=== PATIENT | female | born 1965 | race Caucasian/White ===

== ENCOUNTER 2016-10-04 07:53 | Emergency (ER) | payer OTHER ==
[2016-10-04 08:02] VITALS: BP 157/92
--- NOTE | 2016-10-04 08:38 | RAD ---
HISTORY: Shortness of breath, cough COMPARISONS: October 11, 2005 VIEWS: 2: Frontal dual-energy and lateral views of the chest. FINDINGS: CARDIOMEDIASTINAL SILHOUETTE: The cardiomediastinal silhouette is normal. JUAN: The juan are normal. PLEURA: The costophrenic angles are sharp. No pleural abnormalities are noted. LUNG PARENCHYMA: The lungs are clear. ABDOMEN: The upper abdomen is clear. There is no subphrenic gas. BONES AND SOFT TISSUES: No bone or soft tissue abnormalities are noted. OTHER: None. IMPRESSION: NO ACTIVE CARDIOPULMONARY DISEASE.
--- NOTE | 2016-10-04 08:59 | UC ---
Respiratory Complaint HPI - HPI Summary HPI Summary: COUGH X 4 DAYS + CHEST CONGESTION , WHEEZING , PRODUCTIVE COUGH WITH YELLOW SPUTUM , + SOB, NO CHEST PAIN EDEMA OF BOTH FEET AND HANDS X 1 DAY - History of Current Complaint Chief Complaint: UCRespiratory Stated Complaint: SOB,SWOLLEN HANDS & FEET Time Seen by Provider: 10/04/16 08:07 Hx Obtained From: Patient Hx Last Menstrual Period: 01/26 Onset/Duration: Gradual Onset, Lasting Days - 4, Still Present Timing: Constant Severity Initially: Moderate Severity Currently: Moderate Character: Cough: Productive - YELLOW Aggravating Factors: Exertion, Deep Breaths Alleviating Factors: Upright Position Associated Signs And Symptoms: Positive: Dyspnea, Edema, URI, Nasal Congestion. Negative: Fever, Chills, Pleuritic Chest Pain, Dizziness, Calf Pain, Calf Swelling - Allergies/Home Medications Allergies/Adverse Reactions: Allergies Allergy/AdvReac Type Severity Reaction Status Date / Time Codeine Allergy Severe Vomiting Verified 10/04/16 07:59 Prednisone AdvReac Chest Verified 10/04/16 07:59 Tightness, Palpitations Home Medications: Home Medications Levothyroxine TAB* [Synthroid TAB*] 137 mcg PO EVERY OTHER DAY 10/04/16 [ History Confirmed 10/04/16] PMH/Surg Hx/FS Hx/Imm Hx Endocrine History Of: Reports: Thyroid Disease - Hypothyroidism Cardiovascular History Of: Reports: Cardiac Disorders - SVT with ablation Respiratory History Of: Reports: Asthma - Surgical History Surgical History: Yes Surgery Procedure, Year, and Place: Hysterectomy, 2014; Thyroidectomy, 2011; Cardiac Ablation for SVT, 2009; Craniotomy, 2005 - Family History Known Family History: Positive: Hypertension - Social History Alcohol Use: None Substance Use Type: None Smoking Status (MU): Light Every Day Tobacco Smoker Type: Cigarettes Amount Used/How Often: ~1 pack per week Length of Time of Smoking/Using Tobacco: 24 Years Have You Smoked in the Last Year: Yes - Immunization History Most Recent Influenza Vaccination: Current for Season Review of Systems Constitutional: Negative Skin: Negative Eyes: Negative ENT: Nasal Discharge Respiratory: Shortness Of Breath, Cough Cardiovascular: Negative Gastrointestinal: Negative Genitourinary: Negative All Other Systems Reviewed And Are Negative: Yes Physical Exam Triage Information Reviewed: Yes Appearance: Well-Appearing, No Pain Distress, Well-Nourished Vital Signs: Initial Vital Signs Temp 98.4 F 10/04/16 07:57 Pulse 86 10/04/16 07:57 Resp 20 10/04/16 07:57 BP 157/92 10/04/16 07:57 Pulse Ox 98 10/04/16 07:57 Vital Signs Reviewed: Yes Eye Exam: Normal Eyes: Positive: Conjunctiva Clear ENT: Positive: Normal ENT inspection, Hearing grossly normal, Pharynx normal Neck exam: Normal Neck: Positive: Supple, Nontender, No Lymphadenopathy Respiratory: Positive: Wheezing Cardiovascular: Positive: RRR, No Murmur, Pulses Normal Abdominal Exam: Normal Skin Exam: Normal UC Diagnostic Evaluation - Laboratory O2 Sat by Pulse Oximetry: 98 Respiratory Course/Dx - Course Course Of Treatment: ELEVATED BP: PT. WILL FOLLOW UP WITH HER PCP IN ONE WEEK - Differential Dx/Diagnosis Provider Diagnoses: BRONCHITIS. ELEVATED BP Discharge - Discharge Plan Condition: Stable Disposition: HOME Prescriptions: Albuterol HFA INHALER* [Ventolin HFA Inhaler*] 2 puff INH Q6H PRN #1 mdi PRN Reason: Wheezing Patient Education Materials: Acute Bronchitis (ED), Edema (ED) Forms: *Work Release Referrals: No Primary Care Phys,NOPCP [Primary Care Provider] - Additional Instructions: + EDEMA OF BOTH FEET AND HANDS WILL CHECK CBC, CMP, CALL THE OFFICE IN 2 DAYS FOR THE RESULTS FOLLOW UP WITH YOUR PCP IN 5 DAYS
[2016-10-04 13:52] LABS: Hematocrit 45 % (35-47); Hemoglobin 15.3 g/dl (12.0-16.0); Mean Corpuscular HGB Conc 34 g/dl (31-36); Mean Corpuscular Hemoglobin 31 pg (27-31); Mean Corpuscular Volume 92 fL (80-97); Mean Platelet Volume 9 um3 (7.4-10.4); Red Blood Count 4.94 10^6/ul (4.0-5.4); Red Cell Distribution Width 13 % (10.5-15); White Blood Count 6.8 10^3/ul (3.5-10.8)
[2016-10-04 14:05] LABS: Albumin 4.2 g/dL (3.2-5.2); BUN/Creatinine Ratio 17.2 (8-20); Calcium 9.3 mg/dL (8.6-10.3); EGFR African American 126.8 (>60); EGFR Non-African American 98.6 (>60); Globulin 2.8 g/dL (2-4); Potassium 4.5 mmol/L (3.5-5.0); Total Bilirubin 0.3 mg/dL (0.2-1.0)
== END 2016-10-04 09:16 | disposition home or self-care (01) ==
LOC: UCCORT 07:53
DX: J40 Bronchitis, not specified as acute or chronic (principal); R03.0 Elevated blood-pressure reading, without diagnosis of hypertension; E03.8 Other specified hypothyroidism; Z88.5 Allergy status to narcotic agent; Z88.8 Allergy status to other drugs, medicaments and biological substances; F17.210 Nicotine dependence, cigarettes, uncomplicated
CPT/HCPCS: 36415; 71020; 80053; 85025; 93005; 99212; G0463

== ENCOUNTER 2017-01-26 12:08 | Emergency (ER) | payer OTHER ==
[2017-01-26 12:34] VITALS: BP 132/92
--- NOTE | 2017-01-26 12:38 | UC ---
Abdominal Pain Female HPI - History of Current Complaint Chief Complaint: UCAbdominalPain Stated Complaint: ABD PAIN 3 DAYS Time Seen by Provider: 01/26/17 12:35 Hx Last Menstrual Period: 01/26 Allergies/Adverse Reactions: Allergies Allergy/AdvReac Type Severity Reaction Status Date / Time Codeine Allergy Severe Vomiting Verified 01/26/17 12:34 Prednisone AdvReac Chest Verified 01/26/17 12:34 Tightness, Palpitations PMH/Surg Hx/FS Hx/Imm Hx Previously Healthy: Yes - Surgical History Surgical History: Yes Surgery Procedure, Year, and Place: Hysterectomy, 2014; Thyroidectomy, 2011; Cardiac Ablation for SVT, 2009; Craniotomy, 2005 - Family History Known Family History: Positive: Hypertension - Social History Alcohol Use: None Substance Use Type: None Smoking Status (MU): Heavy Every Day Tobacco Smoker Type: Cigarettes Amount Used/How Often: 1/2 ppd Length of Time of Smoking/Using Tobacco: 24 Years Have You Smoked in the Last Year: Yes - Immunization History Most Recent Influenza Vaccination: Current for Review of Systems Constitutional: Negative Skin: Negative Eyes: Negative ENT: Negative Respiratory: Negative Cardiovascular: Negative Gastrointestinal: Abdominal Pain Genitourinary: Negative Motor: Negative Neurovascular: Negative Musculoskeletal: Negative Neurological: Negative Psychological: Negative All Other Systems Reviewed And Are Negative: Yes Physical Exam Triage Information Reviewed: Yes Vital Signs: Initial Vital Signs Temp 37.1 C 01/26/17 12:29 Pulse 76 01/26/17 12:29 Resp 16 01/26/17 12:29 BP 132/92 01/26/17 12:29 Pulse Ox 96 01/26/17 12:29 Eye Exam: Normal ENT Exam: Normal Dental Exam: Normal Neck exam: Normal Neck: Positive: 1 Respiratory Exam: Normal Cardiovascular Exam: Normal Abdominal Exam: Normal Musculoskeletal Exam: Normal Neurological Exam: Normal Psychological Exam: Normal Skin: Positive: Other - INSECT BITE Abd Pain Female Course/Dx - Differential Dx/Diagnosis Provider Diagnoses: INSECT BITE Discharge - Discharge Plan Condition: Stable Disposition: HOME Discharge Disposition Comment: PLEASE GO TO ER TO RULE OUT ACUTE CHOLECYSTITIS Patient Education Materials: Acute Abdominal Pain (ED) Referrals: No Primary Care Phys,NOPCP [Primary Care Provider] - Additional Instructions: PLEASE GO TO ER TO RULE OUT ACUTE CHOLEYCYSTITIS
== END 2017-01-26 12:51 | disposition home or self-care (01) ==
LOC: UCCORT 12:08
DX: R10.11 Right upper quadrant pain (principal); Z90.710 Acquired absence of both cervix and uterus; Z88.5 Allergy status to narcotic agent; F17.210 Nicotine dependence, cigarettes, uncomplicated
CPT/HCPCS: 99211; G0463

== ENCOUNTER 2017-10-16 17:02 | Emergency (ER) | payer OTHER ==
[2017-10-16 17:48] VITALS: BP 134/90
--- NOTE | 2017-10-16 17:50 | UC ---
UC General HPI - HPI Summary HPI Summary: pt states she was running yesterday and felt a sudden pain deep in the bone of her R lower leg. statse had the same last year but it was lower and was dx with a stress fx - History of Current Complaint Stated Complaint: (R) LEG COMPLAINT Time Seen by Provider: 10/16/17 17:43 Hx Obtained From: Patient Hx Last Menstrual Period: 01/26 Onset/Duration: Sudden Onset Timing: Constant Aggravating: weight on the leg Alleviating: improves with non weight to the leg Associated Signs & Symptoms: Positive: Edema - over site of pain. Negative: Fever - Allergy/Home Medications Allergies/Adverse Reactions: Allergies Allergy/AdvReac Type Severity Reaction Status Date / Time prednisone Allergy Severe chest Verified 10/16/17 17:51 tightness/palpitations codeine Allergy Intermediate Vomiting Verified 10/16/17 17:51 PMH/Surg Hx/FS Hx/Imm Hx - Additional Past Medical History Additional PMH: stress fx rle Endocrine History: Thyroid Disease - Surgical History Surgical History: Yes Surgery Procedure, Year, and Place: Hysterectomy, 2014; Thyroidectomy, 2011; Cardiac Ablation for SVT, 2009; Craniotomy, 2005 - Family History Known Family History: Positive: Hypertension - Social History Occupation: Employed Full-time Alcohol Use: None Substance Use Type: None Smoking Status (MU): Heavy Every Day Tobacco Smoker Type: Cigarettes Amount Used/How Often: 1/2 ppd Length of Time of Smoking/Using Tobacco: 24 Years Have You Smoked in the Last Year: Yes - Immunization History Most Recent Influenza Vaccination: Current for 2015/2016 Season Vaccination Up to Date: Yes Review of Systems Constitutional: Negative Skin: Negative Eyes: Negative ENT: Negative Respiratory: Negative Cardiovascular: Negative Gastrointestinal: Negative Genitourinary: Negative Motor: Negative Neurovascular: Negative Musculoskeletal: Other: - pain r tibia Neurological: Negative Psychological: Negative Is Patient Immunocompromised?: No All Other Systems Reviewed And Are Negative: Yes Physical Exam Triage Information Reviewed: Yes Appearance: Well-Appearing Eyes: Positive: Conjunctiva Clear ENT: Positive: Normal ENT inspection Neck: Positive: Supple, Nontender, No Lymphadenopathy Respiratory: Positive: Lungs clear, Normal breath sounds Cardiovascular: Positive: RRR, No Murmur Abdomen Description: Positive: Nontender, No Organomegaly, Soft Bowel Sounds: Positive: Present Musculoskeletal: Positive: Other: - RLE: hip, knee, ankle and foot are atraumatic. slight swelling and tender over medial-upper half of tibia. leg has full s/v/m function. No laxity to knee. Neurological: Positive: Alert Psychological: Positive: Age Appropriate Behavior Skin Exam: Normal Diagnostics - Radiology No standard instances Xray Interpretation: No Acute Changes Radiology Interpretation Completed By: Radiologist Course/Dx - Course Course Of Treatment: no concern for infection or dvt. no fx on xray but stress fx still possible. will crutch and refer to her ortho([facility]). no htn, i think BP is injury related. - Differential Dx - Multi-Symptom Provider Diagnoses: Acute pain R proximal tibia. Possible stress fracture Discharge - Sign-Out/Discharge Documenting (check all that apply): Discharge/Admit/Transfer - Discharge Plan Condition: Stable Disposition: HOME Patient Education Materials: Joseph Splints (ED) Forms: *Work Release Referrals: Raquel Hammond MD [Primary Care Provider] - If Needed Additional Instructions: call and follow up with your orthopedist at [facility] in [place] tomorrow. use crutches and NO Weight on leg until cleared by orthopedics - Billing Disposition and Condition Condition: STABLE Disposition: HOME
--- NOTE | 2017-10-16 18:18 | RAD ---
Indication: Right-sided leg pain. 2 views of the right lower leg demonstrates no fracture. No other bone or joint abnormality is noted. IMPRESSION: No fracture of the right lower leg is noted.
== END 2017-10-16 18:47 | disposition home or self-care (01) ==
LOC: UCCORT 17:02
DX: M79.661 Pain in right lower leg (principal); F17.210 Nicotine dependence, cigarettes, uncomplicated; Z88.8 Allergy status to other drugs, medicaments and biological substances; Z88.5 Allergy status to narcotic agent
CPT/HCPCS: 99211; G0463

== ENCOUNTER 2018-01-04 14:41 | Emergency (ER) | payer OTHER ==
[2018-01-04 15:33] VITALS: BP 126/101
--- NOTE | 2018-01-04 16:24 | RAD ---
Indication: RIGHT wrist and distal forearm pain post fall. Comparison: November 13, 2010 RIGHT wrist radiographs. Technique: AP, lateral, and oblique views RIGHT wrist. AP and lateral views RIGHT forearm. Report: Dorsal and ulnar soft tissue swelling at the mid to distal forearm. Negative for subcutaneous emphysema. Negative for forearm or wrist fracture or articular malalignment. 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 IMPRESSION: #. Dorsal and ulnar soft tissue swelling at the mid to distal forearm. #. Negative for fracture or articular malalignment at the forearm or wrist.
--- NOTE | 2018-01-04 16:34 | UC ---
Hand/Wrist HPI - History Of Current Complaint Chief Complaint: UCTrauma Stated Complaint: RIGHT ARM INJURY - WC Time Seen by Provider: 01/04/18 15:29 Hx Last Menstrual Period: 01/26 ?: No Onset/Duration: Sudden Onset Severity Initially: Moderate Severity Currently: Moderate Pain Intensity: 6 Character Of Pain: Sharp, Aching Aggravating Factor(s): Movement Alleviating Factor(s): Rest Associated Signs And Symptoms: Positive: Negative - Allergies/Home Medications Allergies/Adverse Reactions: Allergies Allergy/AdvReac Type Severity Reaction Status Date / Time prednisone Allergy Severe chest Verified 01/04/18 15:28 tightness/palpitations codeine Allergy Intermediate Vomiting Verified 01/04/18 15:28 PMH/Surg Hx/FS Hx/Imm Hx Previously Healthy: Yes - Surgical History Surgical History: Yes Surgery Procedure, Year, and Place: Hysterectomy, 2014; Thyroidectomy, 2011; Cardiac Ablation for SVT, 2009; Craniotomy, 2005 - Family History Known Family History: Positive: Hypertension - Social History Alcohol Use: None Substance Use Type: None Smoking Status (MU): Heavy Every Day Tobacco Smoker Type: Cigarettes Amount Used/How Often: 1/2 ppd Length of Time of Smoking/Using Tobacco: 24 Years Have You Smoked in the Last Year: Yes - Immunization History Most Recent Influenza Vaccination: Current for Season Vaccination Up to Date: Yes Review of Systems Constitutional: Negative Skin: Negative Eyes: Negative ENT: Negative Respiratory: Negative Cardiovascular: Negative Gastrointestinal: Negative Genitourinary: Negative Motor: Negative Neurovascular: Negative Musculoskeletal: Negative Neurological: Negative Psychological: Negative Is Patient Immunocompromised?: No All Other Systems Reviewed And Are Negative: Yes Physical Exam Triage Information Reviewed: Yes Appearance: Well-Appearing Vital Signs: Initial Vital Signs Temp 36.5 C 01/04/18 15:23 Pulse 82 01/04/18 15:23 Resp 16 01/04/18 15:23 BP 126/101 01/04/18 15:23 Pulse Ox 98 01/04/18 15:23 Vital Signs Reviewed: Yes Eye Exam: Normal ENT Exam: Normal Dental Exam: Normal Neck exam: Normal Respiratory Exam: Normal Musculoskeletal Exam: Other - swelling over the ulnar side of the forearm on the right, full rom of the wrist, some pain with ulnar deviation Neurological Exam: Normal Hand/Wrist Course/Dx - Differential Dx/Diagnosis Provider Diagnoses: bruise of the forearm , right Discharge - Sign-Out/Discharge Documenting (check all that apply): Patient Departure - Discharge Plan Condition: Good Disposition: HOME Referrals: Raquel Hammond MD [Primary Care Provider] - - Billing Disposition and Condition Condition: GOOD Disposition: Home
== END 2018-01-04 16:43 | disposition home or self-care (01) ==
LOC: UCCORT 14:41
DX: S50.11XA Contusion of right forearm, initial encounter (principal); X58.XXXA Exposure to other specified factors, initial encounter; Y93.9 Activity, unspecified; Y92.9 Unspecified place or not applicable; Z88.5 Allergy status to narcotic agent; Z88.8 Allergy status to other drugs, medicaments and biological substances; F17.210 Nicotine dependence, cigarettes, uncomplicated
CPT/HCPCS: 99211; G0463

== ENCOUNTER 2018-10-08 08:15 | Emergency (ER) | payer BC ==
--- NOTE | 2018-10-08 08:37 | UC ---
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 3 weeks ago, she developed pain to the back of her R arm, "a circular spot" in her R anterior chest, in the center of her low back and in her L "iliac crest". she denies any hx of injury or overuse. no fever. no new rashes just the pals and soles of her feet. the pain in her chest is very localized and not exertional plus no sob or diaphoresis. she admits that the pustular psoriasis was preceded by a viral illness. - History of Current Complaint Stated Complaint: BACK,LT HIP,RT ARM PAIN Time Seen by Provider: 10/08/18 08:28 Hx Obtained From: Patient Hx Last Menstrual Period: 01/26 Timing: Constant Aggravating: movement Associated Signs & Symptoms: Negative: Abdominal Pain, Cough, Fever, SOB - Allergy/Home Medications Allergies/Adverse Reactions: Allergies Allergy/AdvReac Type Severity Reaction Status Date / Time prednisone Allergy Severe chest Verified 10/08/18 08:30 tightness/palpitations codeine Allergy Intermediate Vomiting Verified 10/08/18 08:30 PMH/Surg Hx/FS Hx/Imm Hx - Additional Past Medical History Additional PMH: Vonwillebrands, Hodgkins disease, Pustular psoriasis. Endocrine History: Thyroid Disease - nodules thus removed Cardiovascular History: Hypertension - not txing yet GI/ History: Gastroesophageal Reflux - Surgical History Surgical History: Yes Surgery Procedure, Year, and Place: Hysterectomy, 2014; Thyroidectomy, 2011; Cardiac Ablation for SVT, 2009; Craniotomy, 2005 - Family History Known Family History: Positive: Hypertension - Social History Occupation: Employed Full-time Alcohol Use: None Substance Use Type: None Smoking Status (MU): Heavy Every Day Tobacco Smoker Type: Cigarettes Amount Used/How Often: 1/2 ppd Length of Time of Smoking/Using Tobacco: 24 Years Have You Smoked in the Last Year: Yes - Immunization History Most Recent Influenza Vaccination: Current for 2015/2016 Season Vaccination Up to Date: Yes Review of Systems All Other Systems Reviewed And Are Negative: Yes Constitutional: Negative: Fever, Fatigue Skin: Positive: Rash - pustular psoriasis Respiratory: Negative: Shortness Of Breath, Cough Cardiovascular: Negative: Palpitations, Chest Pain Gastrointestinal: Negative: Abdominal Pain Genitourinary: Negative: Dysuria Musculoskeletal: Negative: Calf Tenderness, Edema Physical Exam Triage Information Reviewed: Yes Appearance: Well-Appearing Vital Signs Reviewed: Yes Eyes: Positive: Conjunctiva Clear ENT: Positive: Normal ENT inspection Neck: Positive: Supple, Nontender, No Lymphadenopathy Respiratory: Positive: Lungs clear, Normal breath sounds, No respiratory distress, Other: - R anterior chest tenderness Cardiovascular: Positive: RRR, No Murmur Abdomen Description: Positive: Nontender, No Organomegaly, Soft Bowel Sounds: Positive: Present Musculoskeletal: Positive: Other: - Generalized joint exam: no redness or swelling. RUE has no deformity or tenderness and full s/v/m is intact. Forced extension reproduces the pain in the triceps mm. when pt stands or moves forward , I note she uses the arm to push off as a result of the back and hip pain. Spine: no gross deformity, swelling or rash. Tender over lower lumbar spine and rom is limited by pain. Pelvis: no deformity or rash but tender over the L iliac crest area. Gross s/v/m is intact x4. Gait is slow but steady. Neurological: Positive: Alert Psychological: Positive: Age Appropriate Behavior Skin Exam: Normal Skin: Positive: Rashes - tiny pustular areas on dry scaley base to palms and arches of feet. Diagnostics - Radiology No standard instances Radiology Interpretation Completed By: Radiologist - cxr, lumar and pelvis xrays =nad - EKG Cardiac Rate: NL Cardiac Rhythm: Sinus: Normal Ectopy: None ST Segment: Non-Specific - slight depression III, similar to a prior ekg Course/Dx - Differential Dx - Multi-Symptom Differential Diagnoses: Other - RUE pain isolates to the tricep mm and may be from over use. ekg is unremarkable. no concern for PE or cardiac ischemia. CXR= NAD. LUMBAR SPINE=NAD. PELVIS=NAD. HX, PX and recent dx of pustular psoriasis raises conern for an autoimmune disorder causes her muskuloskeletal pains. will refer to her pcp abelardo. pt declined narcotic pain medication. - Diagnoses Provider Diagnosis: Myalgia, Arthralgia Discharge - Sign-Out/Discharge Documenting (check all that apply): Patient Departure All imaging exams completed and their final reports reviewed: Yes - Discharge Plan Condition: Stable Disposition: HOME Patient Education Materials: Arthralgia (ED) Referrals: Raquel Hammond MD [Primary Care Provider] - As Soon As Possible - Billing Disposition and Condition Condition: STABLE Disposition: Home
[2018-10-08 08:40] VITALS: BP 154/94
== END 2018-10-08 10:14 | disposition home or self-care (01) ==
LOC: UCCORT 08:15
DX: M79.10 Myalgia, unspecified site (principal); M25.50 Pain in unspecified joint; E07.9 Disorder of thyroid, unspecified; I10 Essential (primary) hypertension; K21.9 Gastro-esophageal reflux disease without esophagitis; F17.210 Nicotine dependence, cigarettes, uncomplicated; D68.0 Von Willebrand disease; I71.2 Thoracic aortic aneurysm, without rupture; Z88.5 Allergy status to narcotic agent
CPT/HCPCS: 71046; 72110; 72170; 93005; 99211; G0463

== ENCOUNTER 2019-08-27 09:27 | Emergency (ER) | payer BC, OTHER ==
--- OUTSIDE RECORDS SUMMARY | 2019-08-27 09:48 | XMS REPORT | Continuity of Care Document ---
:1965 External Reference #:[id number] Author Name Gino Nuñez MD Address [address] [place] [address] Care Team Providers Name Role Phone Felicity Gabriel PA - Medical Care Team Information Latex Thread Machine Operator [phone] Manuel Hernandez MD - Rheumatology Care Team Information Latex Thread Machine Operator Gino Nuñez MD - Family Medicine Care Team Information Latex Thread Machine Operator [phone] Lukas Soliman MD [facility] - Care Team Information Latex Thread Machine Operator [phone] Cardiovascular Disease Problems Active Problems Provider Date Right upper quadrant pain Mandeep Vera MD Onset: 02/03/2017 Heartburn Mandeep Vera MD Onset: 02/03/2017 History of polyp of colon Mandeep Vera MD Onset: 02/03/2017 Abnormal findings diagnostic imaging of Mandeep Vera MD Onset: 02/03/2017 liver+biliary tract Digestive symptom Mandeep Vera MD Onset: 02/03/2017 Flatulence, eructation and gas pain Mandeep Vera MD Onset: 02/03/2017 Headache Raquel Hammond MD Onset: 08/30/2017 Malaise and fatigue Raquel Hammond MD Onset: 08/30/2017 Tobacco user Raquel Hammond MD Onset: 08/30/2017 Knee pain Howie Casillas M.D. Onset: 10/19/2017 Bursitis Howie Casillas M.D. Onset: 10/26/2017 Social History Type Date Description Comments Sex Unknown Tobacco Use Reviewed: 06/28/19 Current Cigarette Smoker Cigarettes Daily 10 Smoking Status Reviewed: 08/06/19 Current Cigarette Smoker Cigarettes Daily 10 Smokeless Tobacco Never Used Smokeless Tobacco ETOH Use Rarely consumes alcohol Recreational Drug Use Denies Drug Use Tobacco Use Start: Unknown Patient is a current smoker, smokes 1/2 ppd every day Allergies, Adverse Reactions, Alerts Active Allergies Reaction Severity Comments Date Codeine nausea, diaphoresis 12/04/2015 Prednisone Chest Pain 10/18/2017 Imitrex Allergic asthma, Anaphylaxis Severe 08/30/2017 Medications Active Medications SIG Qnty Indications Ordering Date Provider Prazosin HCL Take 1 Capsule 90caps F41.9 Gino Nuñez, 08/06/2019 1mg Capsules By Mouth AT MD Bedtime Escitalopram Oxalate 1 tab by mouth 30tabs F41.9 Gino Nuñez, 2019 10mg every day MD Tablets Lisinopril Take 2 Tablets 180tabs I10 Gino Nuñez, 05/14/2019 10mg Tablets By Mouth Every MD Day Levothyroxine Sodium take 1 tablet by 90tabs Gino Nuñez, mouth daily MD 150mcg Tablets Tylenol PM Extra 1 tab by mouth Unknown Strength every night as 500-25mg Tablets needed Ventolin HFA Take 2 puffs by 8gm Raquel Hammond, 108(90Base) mouth every 4 MD mcg/Act Aerosol hours as needed for SOB/ cough History Medications Bupropion Take 1 tab 60tabs F17.210 Gino Nuñez, 05/14/2019 - Hydrochloride ER (SR) daily for 3 MD 06/28/2019 days and then 150mg Tablets ER 12HR take one tab twice a day. Immunizations CPT Code Status Date Vaccine Lot # [id number] Given 02/27/2018 Influenza Virus Vaccine, Quadrivalent, 36 Mos+, [id number] Given 02/15/2017 Tdap injection [id number] Vital Signs Date Vital Result Comment 08/12/2019 10:54am BP Systolic Sitting Left Arm 124 mmHg BP Diastolic Sitting Left Arm 88 mmHg Body Temperature 97.9 F Heart Rate 86 /min Respiratory Rate 18 /min Height 63 inches 5'3" [place] body weight in kilograms 52 kg O2 % BldC Oximetry 97 % Ra 08/06/2019 8:55am BP Systolic Sitting Left Arm 118 mmHg BP Diastolic Sitting Left Arm 84 mmHg Body Temperature 97.7 F Heart Rate 88 /min Respiratory Rate 18 /min Height 63 inches 5'3" Weight 179.00 lb BMI (Body Mass Index) 31.7 kg/m2 BSA (Body Surface Area) 1.84 m2 [place] body weight in kilograms 52 kg O2 % BldC Oximetry 97 % Ra Results Test Acquired Date Facility Test Result H/L Range Note Basic Metabolic 06/22/2019 [facility] Glucose 97 mg/dL Normal 74-106 [address] [place] [address] [phone] BUN 12 mg/dL Normal 7-18 Creatinine 0.8 mg/dL Normal 0.6-1.3 Glom Filtration Rate, Estimate >60 mL/min >60 If >60 mL/min >60 2 BUN/Creat 15.0 ratio Sodium 137 mmol/L Normal 136-145 Potassium 3.9 mmol/L Normal 3.5-5.1 Chloride 107 mmol/L Normal 98-107 Carbon Dioxide 25 mmol/L Normal 21-32 Anion Gap 5 mEq/L Low 8-16 Calcium 8.8 mg/dL Normal 8.5-10.1 CBC W/Automated 06/22/2019 [facility] White Blood 6.5 K/uL Normal 3.1-10.[address] [place] [address] [phone] Red Blood Count 5.03 M/uL Normal 3.90-5.40 Hemoglobin 15.6 gm/dL Normal 11.6-15.8 Hematocrit 45.5 % Normal 36.0-46.1 Mean Cell Volume 90.5 fl Normal 80.9-99.0 Mean Corpuscular HGB 31.0 pg Normal 25.9-32.7 Mean Corpuscular HGB Conc 34.3 g/dL Normal 30.8-34.3 Platelet Count 391 K/uL High 155-360 Red Cell Distri Width SD 42.4 fl Normal 36-47 Red Cell Distri Width %CV 12.8 % Normal 11.7-14.4 Mean Platelet Volume 10.5 fl Normal 8.9-12.4 Neut% 48.6 % Normal 40.4-72.8 Lymph % 41.6 % Normal 20.0-42.0 [place]ane % 6.2 % Normal 4.3-13.2 Eo% 2.5 % Normal 0.0-6.6 Bas% 0.8 % Normal 0.0-1.1 Immature Grans 0.3 % Normal 0.0-5.0 NRBC % 0.0 /100WBC < 10/ 100 WBC Neut# 3.16 K/uL Normal 1.8-7.0 Lymph # 2.70 K/uL Normal 1.0-4.0 [place] # 0.40 K/uL Normal 0.3-0.9 Eos # 0.16 K/uL Normal 0.0-0.5 Baso # 0.05 K/uL Normal 0.0-0.1 Immature Grans Absolute 0.02 K/uL NRBC # 0.00 K/uL Laboratory test 06/22/2019 [facility] Thyroid 1.56 Normal 0.30-4.[address] Stim uIU/[place] [address] Hormone [phone] 1 I10 E03.9 2 Note: Persistent reduction for 3 months or more in an eGFR <60 mL/min/1.73 m2 defines CKD. Patients with eGFR values >/=60 mL/min/1.73 m2 may also have CKD if evidence of persistent proteinuria is present. The original MDRD equation for estimated GFR is not valid for patients less than 18 years of age. Additional information may be found at [email or web address].org. Procedures Date Code Description Status 05/14/2019 81054 EKG-Tracing And Report Completed 07/27/2017 [id number] Mammogram Completed 08/10/2015 [id number] Mammogram Completed 03/26/2015 [id number] Colonoscopy Completed Medical Devices Description No Information Available Encounters Type Date Location Provider Dx Diagnosis Office Visit 08/12/2019 [facility] Nuñez, L72.0 Epidermal cyst 10:40a Office MD Office Visit 08/06/2019 [facility] Gino Nuñez, I10 Essential ( primary) 9:00a Office hypertension F41.9 Anxiety disorder, unspecified F17.210 Nicotine dependence, cigarettes, uncomplicated J20.9 Acute bronchitis, unspecified Office Visit 06/28/2019 8:40a [facility]ino Nuñez, I10 Essential (primary) Office hypertension F41.9 Anxiety disorder, unspecified F17.210 Nicotine dependence, cigarettes, uncomplicated Z71.6 Tobacco abuse counseling E66.9 Obesity, unspecified Z12.31 Encntr screen mammogram for malignant neoplasm of breast Office Visit 05/14/2019 2:10p [facility] Gino Nuñez, I10 Essential (primary) Office hypertension R07.9 Chest pain, unspecified R00.2 Palpitations E03.9 Hypothyroidism, unspecified E78.5 Hyperlipidemia, unspecified F17.210 Nicotine dependence, cigarettes, uncomplicated F41.9 Anxiety disorder, unspecified Z23 Encounter for immunization Assessments Date Code Description Provider 08/12/2019 L72.0 Epidermal cyst Gino Nuñez MD 08/06/2019 I10 Essential (primary) hypertension Gino Nuñez MD 08/06/2019 F41.9 Anxiety disorder, unspecified Gino Nuñez MD 08/06/2019 F17.210 Nicotine dependence, cigarettes, uncomplicated Gino Nuñez MD 08/06/2019 J20.9 Acute bronchitis Gino Nuñez MD 06/28/2019 I10 Essential (primary) hypertension Gino Nuñez MD 06/28/2019 F41.9 Anxiety disorder, unspecified Gino Nuñez MD 06/28/2019 F17.210 Nicotine dependence, cigarettes, uncomplicated Gino Nuñez MD 06/28/2019 Z71.6 Tobacco abuse counseling Gino Nuñez MD 06/28/2019 E66.9 Obesity, unspecified Gino Nuñez MD 06/28/2019 Z12.31 Encounter for screening mammogram for malignant Gino Nuñez MD neoplasm of breast 05/14/2019 I10 Essential (primary) hypertension Gino Nuñez MD 05/14/2019 R07.9 Chest pain, unspecified Gino Nuñez MD 05/14/2019 R00.2 Palpitations Gino Nuñez MD 05/14/2019 E03.9 Hypothyroidism, unspecified Gino Nuñez MD 05/14/2019 E78.5 Hyperlipidemia, unspecified Gino uNñez MD 05/14/2019 F17.210 Nicotine dependence, cigarettes, uncomplicated Gino Nuñez MD 05/14/2019 F41.9 Anxiety disorder, unspecified Gino Nuñez MD 05/14/2019 Z23 Encounter for immunization Gino Nuñez MD Plan of Treatment Future Appointment(s):11/04/2019 3:30 pm - Gino Nuñez MD at [facility] Imokyz1608/12/2019 - Gino Nuñez MDL72.0 Epidermal cystComments:Patient has an appointment coming up with plastic surgery. Discussed with her that this appointmentthey will likely be able to remove the cyst.Recommended patient keep area clean. She can shower andthe left running water over this area. She can apply soap. She keep area lightly covered. No evidence of infection. Reassurance provided Functional Status Description No Information Available Mental Status Description No Information Available Referrals Refer to Reason for Referral Status Appt Date Lukas Soliman MD [facility] Closed 07/25/[address] [place] [address] [phone]
--- OUTSIDE RECORDS SUMMARY | 2019-08-27 09:48 | XMS REPORT | Continuity of Care Document ---
:1965 External Reference #:[id number] Author Name Gino Nuñez MD Address [address] [place] [address] Care Team Providers Name Role Phone Felicity Gabriel PA - Medical Care Team Information Pile Driving Nozzleman Manuel Hernandez MD - Rheumatology Care Team Information Pile Driving Nozzleman Gino Nuñez MD - Family Medicine Care Team Information Pile Driving Nozzleman Lukas Soliman MD [facility] - Care Team Information Pile Driving Nozzleman [phone] Cardiovascular Disease Problems Active Problems Provider Date [...] Qnty Indications Ordering Date Provider Prazosin HCL 1 tab by mouth 60caps F41.9 Gino Nuñez, 08/06/2019 1mg Capsules at bedtime Escitalopram Oxalate 1 tab by mouth 30tabs [...] CPT Code Status Date Vaccine Lot # [id number] Given 02/27/2018 Influenza Virus Vaccine, Quadrivalent, 36 Mos+, [id number] .[id number] Given 02/15/2017 Tdap injection [id number] Vital Signs Date Vital Result Comment 08/06/2019 8:55am BP Systolic Sitting Left Arm 118 mmHg BP Diastolic Sitting Left Arm 84 mmHg Body Temperature 97.7 F Heart Rate 88 /min Respiratory Rate 18 /min Height 63 inches 5'3" Weight 179.00 lb BMI (Body Mass Index) 31.7 kg/m2 BSA (Body Surface Area) 1.84 m2 [place] body weight in kilograms 52 kg O2 % BldC Oximetry 97 % Ra 06/28/2019 8:30am BP Systolic Sitting Left Arm 132 mmHg BP Diastolic Sitting Left Arm 86 mmHg Body Temperature 97.5 F Heart Rate 84 /min Respiratory Rate 18 /min Height 63 inches 5'3" Weight 178.00 lb BMI (Body Mass Index) 31.5 kg/m2 BSA (Body Surface Area) 1.84 m2 O2 % BldC Oximetry 97 % ra Results Test Acquired Date Facility Test Result H/L Range Note Basic Metabolic 06/22/2019 [facility] Glucose 97 mg/dL Normal 74-106 1 Panel [address] [place] [address] [phone] BUN 12 mg/dL Normal 7-18 Creatinine 0.8 mg/dL Normal 0.6-1.3 Glom Filtration Rate, Estimate >60 mL/min >60 If >60 mL/min >60 2 BUN/Creat 15.0 ratio Sodium 137 mmol/L Normal 136-145 Potassium 3.9 mmol/L Normal 3.5-5.1 Chloride 107 mmol/L Normal 98-107 Carbon Dioxide 25 mmol/L Normal 21-32 Anion Gap 5 mEq/L Low 8-16 Calcium 8.8 mg/dL Normal 8.5-10.1 CBC W/Automated 06/22/2019 [facility] White Blood 6.5 K/uL Normal 3.1-10.[address] [place] [address] [phone] Red Blood Count 5.03 M/uL Normal 3.90-5.40 [...] 40.4-72.8 Lymph % 41.6 % Normal 20.0-42.0 [place] % 6.2 % Normal 4.3-13.2 Eo% 2.5 % Normal 0.0-6.6 Bas% 0.8 % Normal 0.0-1.1 Immature Grans 0.3 % Normal 0.0-5.0 NRBC % 0.0 /100WBC < 10/ 100 WBC Neut# 3.16 K/uL Normal 1.8-7.0 Lymph # 2.70 K/uL Normal 1.0-4.0 [place] # 0.40 K/uL Normal 0.3-0.9 Eos # 0.16 K/uL Normal 0.0-0.5 Baso # 0.05 K/uL Normal 0.0-0.1 Immature Grans Absolute 0.02 K/uL NRBC # 0.00 K/uL Laboratory test 06/22/2019 [facility] Thyroid 1.56 Normal 0.30-4.[address] Stim uIU/[place] [address] Hormone [phone] 1 I10 E03.9 2 Note: Persistent reduction [...] [email or web address]. Procedures Date Code Description Status 05/14/2019 42879 EKG-Tracing And Report Completed 07/27/2017 [id number] Mammogram Completed 08/10/2015 [id number] Mammogram Completed 03/26/2015 [id number] Colonoscopy Completed Medical Devices Description No Information Available Encounters Type Date Location Provider Dx Diagnosis Office Visit 08/06/2019 [facility] Nuñez, [...] for immunization Assessments Date Code Description Provider 08/06/2019 I10 Essential (primary) hypertension Gino Nuñez [...] unspecified Gino Nuñez MD 05/14/2019 E78.5 Hyperlipidemia, gokulified Gino Nuñez MD 05/14/2019 F17.210 Nicotine dependence, cigarettes, uncomplicated Gino Nuñez MD 05/14/2019 F41.9 Anxiety disorder, unspecified Gino Nuñez MD 05/14/2019 Z23 Encounter for immunization Gino Nuñez MD Plan of Treatment Future Appointment(s):11/04/2019 3:30 pm - Gino Nuñez MD at [facility] Ajjaal1708/06/2019 - Gino Nuñez MDI10 Essential (primary) hypertensionComments:Blood pressure is well controlled. She checks her blood pressure occasionally at work as well and that's been well- controlled.Asymptomatic.Continue current regimen.F41.9 Anxiety disorder, unspecifiedNew Medication:Prazosin HCL 1 mg - 1 tab by mouth at bedtimeComments: Symptoms of anxiety have improved. She does describe some PTSD-like symptoms. I encouraged her to continue seeing psychology for counseling which is provided by her work.She does feel safe.In regards to the lack of emotions, patient does wish to maybe try stopping the Lexapro for a couple of weeks tosee if this changes anything and I am agreeable to this. She will start the Lexapro again if she feels it doesn't make a difference to her emotions.I will start prazosin 1 mg at night for her sleep disturbances. Educated patient on tapering dose by 1 mg every 3-4 days, depending on her symptoms, upto a maximum of 3 mg at night.F17.210 Nicotine dependence, cigarettes, uncomplicatedComments:Patient continues to smoke.J20.9 Acute bronchitisComments:Discussed with patient that her cough is likely secondary to bronchitis. Viral trigger.Symptomatic management. Yuta-wdt-pedrsib medications for this her cough if needed.Zyrtec at night for postnasal drip.Albuterol inhaler at least twice a day for her wheezing.She'll contact me if she develops any worsening symptoms or fevers.AllFollow up:3 months Functional Status Description No Information Available Mental Status Description No Information Available Referrals Refer to Dr Reason for Referral Status Appt Date Lukas Soliman MD [facility] Closed 07/25/[address] [place] [address] [phone]
--- OUTSIDE RECORDS SUMMARY | 2019-08-27 09:49 | XMS REPORT | Continuity of Care Document ---
:1965 External Reference #:[id number] Author Name Gino Nuñez MD Address [address] [place] [address] Care Team Providers Name Role Phone Felicity Gabriel PA - Medical Care Team Information Blueprint Maker [phone] Manuel Hernandez MD - Rheumatology Care Team Information Blueprint Maker [phone] Gino Nuñez MD - Family Medicine Care Team Information Blueprint Maker Lukas Soliman MD [facility] - Care Team Information Blueprint Maker [phone] Cardiovascular Disease Problems Active Problems Provider Date [...] Smoker Cigarettes Daily 10 Smoking Status Reviewed: 06/28/19 Current Cigarette Smoker Cigarettes Daily 10 Smokeless [...] Medications SIG Qnty Indications Ordering Date Provider Escitalopram Oxalate 1 tab by mouth 30tabs [...] CPT Code Status Date Vaccine Lot # [id number] Given 02/27/2018 Influenza Virus Vaccine, Quadrivalent, 36 Mos+, [id number] .[id number] [id number] Given 02/15/2017 Tdap injection [id number] Vital Signs Date Vital Result Comment 06/28/2019 8:30am BP Systolic Sitting Left Arm 132 mmHg BP Diastolic Sitting Left Arm 86 mmHg Body Temperature 97.5 F Heart Rate 84 /min Respiratory Rate 18 /min Height 63 inches 5'3" Weight 178.00 lb BMI (Body Mass Index) 31.5 kg/m2 BSA (Body Surface Area) 1.84 m2 O2 % BldC Oximetry 97 % ra 05/14/2019 1:57pm BP Systolic Sitting Right Arm 156 mmHg elect. BP Diastolic Sitting Right Arm 111 mmHg elect. BP Systolic Sitting Left Arm 160 mmHg manual BP Diastolic Sitting Left Arm 100 mmHg manual Body Temperature 98.6 F Heart Rate 93 /min Respiratory Rate 18 /min Height 63 inches 5'3" Weight 179.00 lb BMI (Body Mass Index) 31.7 kg/m2 BSA (Body Surface Area) 1.84 m2 [place] body weight in kilograms 52 kg O2 % dC Oximetry 98 % Results Test Acquired Date Facility Test Result H/L Range Note Basic Metabolic 06/22/2019 [facility] Glucose 97 mg/dL Normal 74-106 [address] [place] [address] [phone] BUN 12 mg/dL Normal 7-18 Creatinine 0.8 mg/dL Normal 0.6-1.3 Glom Filtration Rate, Estimate >60 mL/min >60 If >60 mL/min >60 2 BUN/Creat 15.0 ratio Sodium 137 mmol/L Normal 136-145 Potassium 3.9 mmol/L Normal 3.5-5.1 Chloride 107 mmol/L Normal 98-107 Carbon Dioxide 25 mmol/L Normal 21-32 Anion Gap 5 mEq/L Low 8-16 Calcium 8.8 mg/dL Normal 8.5-10.1 CBC W/Automated 06/22/2019 [facility] White Blood 6.5 K/uL Normal 3.1-10.[address] [place] [address] [phone] Red Blood Count 5.03 M/uL Normal 3.90-5.40 [...] 40.4-72.8 Lymph % 41.6 % Normal 20.0-42.0 [place] % 6.2 % Normal 4.3-13.2 Eo% 2.5 % Normal 0.0-6.6 Bas% 0.8 % Normal 0.0-1.1 Immature Grans 0.3 % Normal 0.0-5.0 NRBC % 0.0 /100WBC < 10/ 100 WBC Neut# 3.16 K/uL Normal 1.8-7.0 Lymph # 2.70 K/uL Normal 1.0-4.0 [place] # 0.40 K/uL Normal 0.3-0.9 Eos # 0.16 K/uL Normal 0.0-0.5 Baso # 0.05 K/uL Normal 0.0-0.1 Immature Grans Absolute 0.02 K/uL NRBC # 0.00 K/uL Laboratory test 06/22/2019 [facility] Thyroid 1.56 Normal 0.30-4.[address] Stim uIU/[place] [address] Hormone [phone] 1 I10 E03.9 2 Note: Persistent reduction [...] [email or web address]. Procedures Date Code Description Status 05/14/2019 05659 EKG-Tracing And Report Completed 07/27/2017 [id number] Mammogram Completed 08/10/2015 [id number] Mammogram Completed 03/26/2015 [id number] Colonoscopy Completed Medical Devices Description No Information Available Encounters Type Date Location Provider Dx Diagnosis Office Visit 06/28/2019 [facility] Gino Nuñez, I10 Essential ( primary) 8:40a Office hypertension F17.210 Nicotine dependence, cigarettes, uncomplicated F41.9 Anxiety disorder, unspecified E66.9 Obesity, unspecified Z12.31 Encntr screen mammogram for malignant neoplasm of breast Z71.6 Tobacco abuse counseling Office Visit 05/14/2019 2:10p [facility] Gino Nuñez, I10 Essential (primary) Office hypertension R07.9 Chest pain, unspecified R00.2 Palpitations E03.9 Hypothyroidism, unspecified E78.5 Hyperlipidemia, unspecified F17.210 Nicotine dependence, cigarettes, uncomplicated F41.9 Anxiety disorder, unspecified Z23 Encounter for immunization Assessments Date Code Description Provider 06/28/2019 I10 Essential (primary) hypertension Gino Nuñez MD 06/28/2019 F17.210 Nicotine dependence, cigarettes, uncomplicated Gino Nuñez MD 06/28/2019 F41.9 Anxiety disorder, unspecified Gino Nuñez MD 06/28/2019 E66.9 Obesity, unspecified Gino Nuñez MD 06/28/2019 Z12.31 Encounter for screening mammogram for malignant Gino Nuñez MD neoplasm of breast 06/28/2019 Z71.6 Tobacco abuse counseling Gino Nuñez MD 05/14/2019 I10 Essential (primary) hypertension Gino Nuñez MD 05/14/2019 R07.9 Chest pain, unspecified Gino Nuñez MD 05/14/2019 R00.2 Palpitations Gino Nuñez MD 05/14/2019 E03.9 Hypothyroidism, unspecified Gino Nuñez MD 05/14/2019 E78.5 Hyperlipidemia, unspecified Gino Nuñez MD 05/14/2019 F17.210 Nicotine dependence, cigarettes, uncomplicated Gino Nuñez MD 05/14/2019 F41.9 Anxiety disorder, Gino Joe MD 05/14/2019 Z23 Encounter for immunization Gino Nuñez MD Plan of Treatment Future Appointment(s):07/30/2019 8:20 am - Gino Nuñez MD at [facility] Hktvpu0506/28/2019 - Gino Nuñez MDI10 Essential (primary) hypertensionComments:- Labs reviewed with patient.- Continue with lisinopril 20mg qday- BP today 132/86. Does report BP at work 140/100. Encouraged her to log periodic BP and let us know if the Lisinopril 20mg is not controlling BP. - Counseled on diet and qbecdfzgE38.210 Nicotine dependence, cigarettes, uncomplicatedComments:- Taking Wellbutrin 300mg daily without any change in smoking status - continues to smoke 2 ppd. She would like to quit, states that she will look into hypnosis before summer. - Wellbutrin discontinued. Lexapro started her anxiety.F41.9 Anxiety disorder, unspecifiedNew Medication: Escitalopram Oxalate 10 mg - 1 tab by mouth every dayComments:- no change in anxiety. States that her work is stressful, she has been unable to get in for personal counseling/therapy.- Discussed the effect of anxiety of her physical wellbeing, she is knowledgable about this. She works long hours and is unable to find time for self-care, states that she will make an appointment.- Discussed addition of SSRI, lexapro 10mg started.E66.9 Obesity, unspecifiedComments:- Reports 30# weight gain in last 3-4 yrs since hysterectomy. She has tried diet and exercise without success. Inquiring about gastric sleeve. - Current BMI 31.5. - Discussed at length lifestyle modifications as the safest method for weight reduction. Set a goal for 2# weight loss by next visit in 1 months. - Counseled on diet and exercise.Z12.31 Encounter for screening mammogram for malignant neoplasm of breastNew Xrays: Mammography, Screening Bilateral Mammogram, Ordered: 06/28/19Comments:- last mammo 07/2017. Mammogram ordered.Z71.6 Tobacco abuse counselingComments:- Discussed additional options for smoking cessation. She has tried patches - they everely irritated her skin, and nicotine gum that was not helpful. She states that she will try hypnosis before thissummer, it has been helpful in th past.AllFollow up:1 month Functional Status Description No Information Available Mental Status Description No Information Available Referrals Refer to Reason for Referral Status Appt Date Lukas Soliman MD [facility] Scheduled 07/25/[address] [place] [address] [phone]
[2019-08-27 09:53] VITALS: BP 128/91
--- NOTE | 2019-08-27 10:00 | UC ---
FLU HPI - HPI Summary HPI Summary: 54yo female presenting with dry cough, intermittent fevers, and body aches x6 days. Patient states that she also has nasal congestion, sore throat, and decreased appetite. Notes shortness of breath and "what feels like an asthma attack just randomly." Denies having asthma but does state that she has an inhaler and nebulizer at home that she has been using. Patient is a 1/2PPD smoker but has only been able to have one cigarette per day since being sick. Denies n/v. Taking tylenol for symptom relief. - History of Current Complaint Chief Complaint: UCGeneralIllness Stated Complaint: FEVER,COUGH Hx Obtained From: Patient Hx Last Menstrual Period: 01/26 Pain Intensity: 0 - Allergy/Home Medications Allergies/Adverse Reactions: Allergies Allergy/AdvReac Type Severity Reaction Status Date / Time prednisone Allergy Severe chest Verified 08/27/19 09:53 tightness/palpitations codeine Allergy Intermediate Vomiting Verified 08/27/19 09:53 Home Medications: Home Medications Levothyroxine TAB* [Synthroid TAB*] 150 mcg PO DAILY 08/12/15 [History Confirmed 08/27/19] Omeprazole CAP (NF) [PriLOSEC CAP*] 40 mg PO BEDTIME 08/12/15 [History Confirmed 08/27/19] Albuterol HFA INHALER* [Ventolin HFA Inhaler*] 2 puff INH Q6H PRN #1 mdi [Rx Confirmed 08/27/19] Lisinopril TAB* [Prinivil TAB*] 20 mg PO BEDTIME 08/27/19 [History Confirmed 09/12] Prazosin 1 mg CAP [Minipress 1 mg CAP] 1 mg PO BEDTIME 08/27/19 [History Confirmed 08/27/19] PMH/Surg Hx/FS Hx/Imm Hx Endocrine History: Hypothyroidism Cardiovascular History: Hypertension GI/ History: Gastroesophageal Reflux - Surgical History Surgical History: Yes Surgery Procedure, Year, and Place: Hysterectomy, 2014; Thyroidectomy, 2011; Cardiac Ablation for SVT, 2009; Craniotomy, 2005 - Family History Known Family History: Positive: Hypertension - Social History Alcohol Use: Occasionally Substance Use Type: None Smoking Status (MU): Heavy Every Day Tobacco Smoker Type: Cigarettes Amount Used/How Often: 1/2 ppd Length of Time of Smoking/Using Tobacco: 24 Years Have You Smoked in the Last Year: Yes - Immunization History Most Recent Influenza Vaccination: Current for Season Vaccination Up to Date: Yes Review of Systems All Other Systems Reviewed And Are Negative: Yes Constitutional: Positive: Fever, Fatigue ENT: Positive: Sore Throat, Sinus Congestion Respiratory: Positive: Shortness Of Breath, Cough Cardiovascular: Positive: Negative Gastrointestinal: Positive: Negative Musculoskeletal: Positive: Myalgia Neurological/Mental Status: Positive: Negative Physical Exam - Summary Physical Exam Summary: Vital Signs Reviewed: Yes A+Ox3, no respiratory distress Eyes: Conjunctiva mildly inflamed b/l ENT: Hearing grossly normal, TM x 2 clear, moist, uvula midline, no exudate, no erythema Neck: Positive: Supple Respiratory: Positive: No respiratory distress, No accessory muscle use + diffuse inspiratory/expiratory wheezing throughout b/l lung simmons Cardiovascular: RRR nl s1, s2 no m/r Musculoskeletal Exam: DELGADO x 4 without difficulty Neurological: Positive: Alert Psychological: Positive: age appropriate behavior Skin: Positive: no rash, no ecchymosis Vital Signs: Initial Vital Signs Temp 98.0 F 08/27/19 09:48 Pulse 79 08/27/19 09:48 Resp 17 08/27/19 09:48 BP 128/91 08/27/19 09:48 Pulse Ox 100 08/27/19 09:48 Lab Results 08/27/19 Range/Units 10:16 Influenza A (Rapid) Negative (Negative) Influenza B (Rapid) Negative (Negative) Diagnostics - Radiology CXR Radiology Interpretation Completed By: Radiologist Summary of Radiographic Findings: IMPRESSION: #. Stigmata of obstructive lung disease. No acute pulmonary or cardiac process evident. Flu Course/Dx - Course Course Of Treatment: Negative rapid flu. CXR without evidence of acute process. I educated patient on viral illness and the flu because symptoms suggest flu despite negative test. I instructed to continue with symptomatic treatment and use of inhaler/ nebulizer. Educated on s/s of worsening illness and instructed to go to ED if any red flags occur. Patient voiced understanding and agreed with the treatment plan. - Differential Dx/Diagnosis Differential Diagnosis/HQI/PQRI: Bronchitis, Influenza, Upper Respiratory Infection Provider Diagnosis: Flu-like symptoms Discharge ED - Sign-Out/Discharge Documenting (check all that apply): Patient Departure All imaging exams completed and their final reports reviewed: Yes - Discharge Plan Condition: Stable Disposition: HOME Patient Education Materials: Influenza (ED) Forms: *Work Release Referrals: Gino Nuñez MD [Primary Care Provider] - If Needed Additional Instructions: Your flu test was negative today but you have symptoms suggestive of the flu. Continue with over the counter cough and cold medication. Use your inhaler and nebulizer as needed for shortness of breath and wheezing. Get plenty of rest and fluids. Follow up with your primary care provider if symptoms do not improve within 7 days. Go to the emergency room with any new or worsening symptoms. - Billing Disposition and Condition Condition: STABLE Disposition: Home
[2019-08-27 10:28] LABS: Influenza A Molecular Negative (Negative); Influenza B Molecular Negative (Negative)
== END 2019-08-27 11:26 | disposition home or self-care (01) ==
LOC: UCCORT 09:27
DX: R50.9 Fever, unspecified (principal); J02.9 Acute pharyngitis, unspecified; M79.10 Myalgia, unspecified site; E03.9 Hypothyroidism, unspecified; I10 Essential (primary) hypertension; K21.9 Gastro-esophageal reflux disease without esophagitis; J34.89 Other specified disorders of nose and nasal sinuses; R06.02 Shortness of breath; R05 Cough; R53.83 Other fatigue; Z88.5 Allergy status to narcotic agent; Z88.8 Allergy status to other drugs, medicaments and biological substances; F17.210 Nicotine dependence, cigarettes, uncomplicated; Z79.890 Hormone replacement therapy; Z79.899 Other long term (current) drug therapy
CPT/HCPCS: 71046; 99211; G0463